=== PATIENT | female | born 1985 | race Caucasian/White ===

== ENCOUNTER 2018-12-10 14:45 | Emergency (ER) | payer BC, OTHER ==
[2018-12-10 15:02] VITALS: BP 130/87
[2018-12-10] MEDS ORDERED: DUONEB 0.5-3 MG/3 ml Neb IH ONE ×2 (15:05→15:23)
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
[2018-12-10 15:37] VITALS: PULSE 79
[2018-12-10 15:50] VITALS: O2SAT 98
== END 2018-12-10 16:02 | disposition home or self-care (01) ==
LOC: ED 14:45
DX: S50.01XA Contusion of right elbow, initial encounter (principal); V53.6XXA Passenger in pick-up truck or van injured in collision with car, pick-up truck or van in traffic accident, initial encounter; J44.1 Chronic obstructive pulmonary disease with (acute) exacerbation
CPT/HCPCS: 73080; 94150; 94640; 99283; A9270-GY

== ENCOUNTER 2020-03-21 15:12 | Emergency (ER) | payer OTHER ==
[2020-03-21 15:52] LABS: Hematocrit 37.9 % (35-47); Hemoglobin 12.2 gm/dl (12.0-16.0); Mean Cell Volume 80.5 fl (78-100); Mean Corpuscular Hemoglobin 25.9 pg (26-32); Mean Corpuscular Hgb Concent. 32.2 g/dl (32-36); Mean Platelet Volume 11.4 fl (7.5-11.0); Platelet Count 277 K/mm3 (150-450); Red Blood Count 4.71 M/mm3 (4.1-5.4); Red Cell Distribution Width 14.2 % (11.5-14.0); White Blood Count 9.5 K/mm3 (4.0-10.5)
[2020-03-21 16:03] LABS: ALBUMIN 4.3 g/dL (3.5-5.0); ALKALINE PHOSPHATASE 53 U/L (38-126); ANION GAP 11.8 MEQ/L (5-15); BLOOD UREA NITROGEN 10 mg/dL (7-17); CHLORIDE 106 mmol/L (98-107); Calcium 9.5 mg/dL (8.4-10.2); Carbon Dioxide 23 mmol/L (22-30); Creatinine 1 0.71 mg/dL (0.52-1.04); EST GLOMERULAR FILTRATION RATE > 60.0 ML/MIN; Glucose 97 mg/dL (74-106); SGOT/AST 24 U/L (14-36); SGPT/ALT 19 U/L (0-35); SODIUM 136 mmol/L (137-145); Total Protein 7.5 g/dL (6.3-8.2)
[2020-03-21 16:50] LABS: Appearance SLIGHTLY CLOUDY (CLEAR); Bacteria RARE /HPF (NEGATIVE); Bilirubin NEGATIVE (NEGATIVE); Blood LARGE Ery/ul (0-5); Epithelial Cells RARE /HPF (FEW); Glucose NEGATIVE (NEGATIVE); Ketones NEGATIVE (NEGATIVE); Leukocyte Esterase NEGATIVE (NEGATIVE); Mucus SLIGHT /HPF (NEGATIVE); Nitrite NEGATIVE (NEGATIVE); Protein,Urine Dip 30 (Negative); Specific Gravity 1.028 (1.005-1.025); Urobilinogen NEGATIVE mg/dL (0-1); WBC 0-2 /HPF (0-5)
--- NOTE | 2020-03-21 17:43 | ERPHSYRPT ---
- History of Present Illness Time Seen by Provider: 03/21/20 15:30 Patient Subjective Stated Complaint: Pt has a hx of migraines and approx a month ago pt was having sex with her and when she had an orgasm that she instantly got a migraine, pt states that this has happened everytime since Triage Nursing Assessment: Pt brought to the ER by herself, vitals wnl, rates head pain as 7/10, no difficulties with strength, pulses normal, doesn't appear to be in any distress Physician History: 34-year-old female with the onset of postcoital headaches for the last few weeks. Colitis she does develop severe migraine type headaches which last for days. It with photophobia nausea vomiting etc. Timing/Duration: worse Quality: throbbing Head Pain Location: global Severity of Pain-Max: severe Severity of Pain-Current: none Recent Head Trauma: frequent headaches Associated Symptoms: nausea/vomiting Previous symptoms: same symptoms as today Allergies/Adverse Reactions: cephalexin monohydrate [From Keflex] Allergy (Intermediate, Verified 12/10/18 14:57) Rash eletriptan [From Relpax] Allergy (Verified 03/21/20 15:29) sumatriptan [From Imitrex] Allergy (Verified 03/21/20 15:29) Home Medications: Albuterol 8 gm Mdi Hfa [Ventolin Hfa MDI] 1 - 2 puff IH Q4H PRN PRN 08/25/14 [History] Sertraline HCl 50 mg [Zoloft 50 mg Tablet] 100 mg PO DAILY 08/25/14 [History] Umeclidinium Brm/Vilanterol Tr [Anoro Ellipta 62.5-25 Mcg INH] 1 each IH UD 03/21/20 [History] Hx Tetanus, Diphtheria Vaccination/Date Given: Yes Hx Influenza Vaccination/Date Given: No Hx Pneumococcal Vaccination/Date Given: No Travel Risk - International Travel Have you traveled outside of the country in past 3 weeks: No - Coronavirus Screening Are you exhibiting any of the following symptoms?: No Close contact with a COVID-19 positive Pt in past 14-21 Days: No - Review of Systems Constitutional: No Fever, No Chills Eyes: No Symptoms Ears, Nose, & Throat: No Symptoms Respiratory: No Cough, No Dyspnea Cardiac: No Chest Pain, No Edema, No Syncope Abdominal/Gastrointestinal: No Abdominal Pain, No Nausea, No Vomiting, No Diarrhea Genitourinary Symptoms: No Dysuria Musculoskeletal: No Back Pain, No Neck Pain Skin: No Rash Neurological: Headache, No Dizziness, No Focal Weakness, No Sensory Changes Psychological: No Symptoms Endocrine: No Symptoms All Other Systems: Reviewed and Negative - Past Medical History Pertinent Past Medical History: Yes Neurological History: Migraines Respiratory History: Asthma Psycho-Social History: Anxiety, Depression - Past Surgical History Past Surgical History: Yes Gastrointestinal: Cholecystectomy Female Surgical History: Dilation & Curettage, Section, Tubal Ligation Other Surgical History: perirectal fistula - Social History Smoking Status: Current every day smoker How long have you smoked: YRS Exposure to second hand smoke: Yes Drug Use: none Patient Lives Alone: No - Female History Hx Now: No - Nursing Vital Signs Nursing Vital Signs: Initial Vital Signs Temperature 97.9 F 03/21/20 15:18 Pulse Rate 86 03/21/20 15:18 Blood Pressure 115/70 03/21/20 15:18 O2 Sat by Pulse Oximetry 99 03/21/20 15:18 Pain Scale Pain Intensity 7 - Physical Exam General Appearance: no apparent distress Eye Exam: PERRL/EOMI Ears, Nose, Throat Exam: normal ENT inspection, moist mucous membranes Neck Exam: normal inspection, supple, full range of motion, No meningismus Respiratory Exam: normal breath sounds, lungs clear Cardiovascular Exam: regular rate/rhythm, normal heart sounds Gastrointestinal/Abdominal Exam: soft, No tenderness, No distention Back Exam: normal inspection, normal range of motion Mental Status Exam: alert, oriented x 3, cooperative dessert cup machine feeder Exam: normal speech, PERRL, No facial droop Coordination/Gait Exam: normal cerebellar function Motor/Sensory Exam: no motor deficit, no sensory deficit Skin Exam: normal color, warm, dry, No rash SpO2: 99 - Course Nursing assessment & vital signs reviewed: Yes - CT Exams Head CT Interpretation: Negative, Other ( did not show any aneurysms or masses) Ordered Tests: Active Orders 24 hr Category Date Time Status CTA HEAD W AND/OR WO CONTRAST [CT] Stat Exams 03/21/20 15:29 Taken CBC Stat Lab 03/21/20 15:45 Completed CMP Stat Lab 03/21/20 15:45 Completed CULTURE,URINE Stat Lab 03/21/20 15:44 Received HCG, Quantitative (Inhouse) Stat Lab 03/21/20 15:45 Completed UA W/RFX UR CULTURE Stat Lab 03/21/20 15:44 Completed Lab/Rad Data: Laboratory Result Diagrams 03/21/20 15:45 03/21/20 15:45 Laboratory Results 03/21/20 03/21/20 03/21/20 Range/Units 15:45 15:45 15:45 WBC 9.5 (4.0-10.5) K/mm3 RBC 4.71 (4.1-5.4) M/mm3 Hgb 12.2 (12.0-16.0) gm/dl Hct 37.9 (35-47) % MCV 80.5 (78-100) fl MCH 25.9 L (26-32) pg MCHC 32.2 (32-36) g/dl RDW 14.2 H (11.5-14.0) % Plt Count 277 (150-450) K/mm3 MPV 11.4 H (7.5-11.0) fl Sodium 136 L (137-145) mmol/L Potassium 4.0 (3.5-5.1) mmol/L Chloride 106 (98-107) mmol/L Carbon Dioxide 23 (22-30) mmol/L Anion Gap 11.8 (5-15) MEQ/L BUN 10 (7-17) mg/dL Creatinine 0.71 (0.52-1.04) mg/dL Estimated GFR > 60.0 ML/MIN Glucose 97 (74-106) mg/dL Calcium 9.5 (8.4-10.2) mg/dL Total Bilirubin 0.40 (0.2-1.3) mg/dL AST 24 (14-36) U/L ALT 19 (0-35) U/L Alkaline Phosphatase 53 (38-126) U/L Serum Total Protein 7.5 (6.3-8.2) g/dL Albumin 4.3 (3.5-5.0) g/dL Beta HCG, Quant < 2.39 mIU/ml Urine Color (YELLOW) Urine Appearance (CLEAR) Urine pH (5-6) Ur Specific [place] (1.005-1.025) Urine Protein (Negative) Urine Ketones (NEGATIVE) Urine Blood (0-5) [place]/ul Urine Nitrite (NEGATIVE) Urine Bilirubin (NEGATIVE) Urine Urobilinogen (0-1) mg/dL Ur Leukocyte Esterase (NEGATIVE) Urine WBC (Auto) (0-5) /HPF Urine RBC (Auto) (0-2) /HPF U Epithel Cells (Auto) (FEW) /HPF Urine Bacteria (Auto) (NEGATIVE) /HPF Urine Mucus (Auto) (NEGATIVE) /HPF Urine Culture Reflexed (NO) Urine Glucose (NEGATIVE) mg/dL 03/21/20 Range/Units 15:44 WBC (4.0-10.5) K/mm3 RBC (4.1-5.4) M/mm3 Hgb (12.0-16.0) gm/dl Hct (35-47) % MCV (78-100) fl MCH (26-32) pg MCHC (32-36) g/dl RDW (11.5-14.0) % Plt Count (150-450) K/mm3 MPV (7.5-11.0) fl Sodium (137-145) mmol/L Potassium (3.5-5.1) mmol/L Chloride (98-107) mmol/L Carbon Dioxide (22-30) mmol/L Anion Gap (5-15) MEQ/L BUN (7-17) mg/dL Creatinine (0.52-1.04) mg/dL Estimated GFR ML/MIN Glucose (74-106) mg/dL Calcium (8.4-10.2) mg/dL Total Bilirubin (0.2-1.3) mg/dL AST (14-36) U/L ALT (0-35) U/L Alkaline Phosphatase (38-126) U/L Serum Total Protein (6.3-8.2) g/dL Albumin (3.5-5.0) g/dL Beta HCG, Quant mIU/ml Urine Color YELLOW (YELLOW) Urine Appearance SLIGHTLY CLOUDY (CLEAR) Urine pH 5.0 (5-6) Ur Specific [place] 1.028 (1.005-1.025) Urine Protein 30 (Negative) Urine Ketones NEGATIVE (NEGATIVE) Urine Blood LARGE (0-5) [place]/ul Urine Nitrite NEGATIVE (NEGATIVE) Urine Bilirubin NEGATIVE (NEGATIVE) Urine Urobilinogen NEGATIVE (0-1) mg/dL Ur Leukocyte Esterase NEGATIVE (NEGATIVE) Urine WBC (Auto) 0-2 (0-5) /HPF Urine RBC (Auto) 3-5 (0-2) /HPF U Epithel Cells (Auto) RARE (FEW) /HPF Urine Bacteria (Auto) RARE (NEGATIVE) /HPF Urine Mucus (Auto) SLIGHT (NEGATIVE) /HPF Urine Culture Reflexed YES (NO) Urine Glucose NEGATIVE (NEGATIVE) mg/dL - Progress Progress: improved Air Movement: good Blood Culture(s) Obtained: No Antibiotics given: No - Departure Clinical Impression: Headache, migraine Condition: Stable Critical Care Time: No Referrals: JONNY PACKER MD [Primary Care Provider] - Instructions: Headache, Adult (DC) Additional Instructions: Patient was advised to use Tylenol aspirin or Motrin prior to intercourse.
[2020-03-21 19:12] VITALS: BP 97/57; PULSE 87; O2SAT 97
--- NOTE | 2020-03-22 08:42 | XRAY ---
Indication: Postcoital headache. Conventional contrast enhanced CTA head performed using 100 cc Isovue 370 contrast. Two-dimensional sagittal and coronal reformatted images obtained. Additional 3-dimensional reformatted images obtained using a separate workstation. Comparison: None Distal internal carotid arteries are bilaterally symmetric without critical stenosis, obstruction, or AV malformation. Normal carotid terminus with normal branching A1 and M1 segments bilaterally. More distal anterior cerebral and middle cerebral arteries are normal in CTA appearance. Posterior circulation demonstrates normal CTA appearance to the distal vertebral, basilar, posterior cerebral, superior cerebellar, and anterior inferior cerebellar arteries bilaterally. Remaining brain is negative for abnormal enhancing intra-or extra-axial mass. Fourth ventricle is midline without hydrocephalus. Briggs-white matter differentiation preserved. Bony calvarium intact. Visualized paranasal sinuses and mastoid air cells are clear. Impression: Normal CTA head with contrast exam.
== END 2020-03-21 19:13 | disposition home or self-care (01) ==
LOC: ED 15:12
DX: G43.909 Migraine, unspecified, not intractable, without status migrainosus (principal); R11.2 Nausea with vomiting, unspecified; Z79.899 Other long term (current) drug therapy; F17.200 Nicotine dependence, unspecified, uncomplicated
CPT/HCPCS: 36000; 36415; 70496; 80053; 81001; 84702; 85027; 87086; 99284

== ENCOUNTER 2020-12-20 14:52 | Emergency (ER) | payer OTHER ==
--- NOTE | 2020-12-20 14:56 | ERPHSYRPT ---
- History of Present Illness Time Seen by Provider: 12/20/20 14:55 Source: patient Exam Limitations: no limitations Physician History: This is a right-handed white female who was mowing her yard and when she pulled the starter her elbow hit directly onto the house. She felt shooting pain proximally and distally to the right elbow. There is also been swelling present. It hurts to flex and extend the right elbow. Occurred: just prior to arrival Method of Injury: direct blow Quality: constant, aching Severity of Pain-Max: moderate Severity of Pain-Current: moderate Extremities Pain Location: elbow: right Modifying Factors: Improves With: movement Associated Symptoms: none Allergies/Adverse Reactions: cephalexin monohydrate [From Keflex] Allergy (Intermediate, Verified 12/20/20 15:10) Rash eletriptan [From Relpax] Allergy (Verified 12/20/20 15:10) sumatriptan [From Imitrex] Allergy (Verified 12/20/20 15:10) Home Medications: Albuterol 8 gm Mdi Hfa [Ventolin Hfa MDI] 1 - 2 puff IH Q4H PRN PRN 08/25/14 [History] Sertraline HCl 50 mg [Zoloft 50 mg Tablet] 100 mg PO DAILY 08/25/14 [History] Umeclidinium Brm/Vilanterol Tr [Anoro Ellipta 62.5-25 Mcg INH] 1 each IH UD 03/21/20 [History] Hx Tetanus, Diphtheria Vaccination/Date Given: Yes Hx Influenza Vaccination/Date Given: No Hx Pneumococcal Vaccination/Date Given: No Travel Risk - International Travel Have you traveled outside of the country in past 3 weeks: No - Coronavirus Screening Are you exhibiting any of the following symptoms?: No Close contact with a COVID-19 positive Pt in past 14-21 Days: No - Review of Systems Constitutional: No Symptoms Eyes: No Symptoms Ears, Nose, & Throat: No Symptoms Respiratory: No Symptoms Cardiac: No Symptoms Abdominal/Gastrointestinal: No Symptoms Genitourinary Symptoms: No Symptoms Musculoskeletal: Injury Skin: No Symptoms Neurological: No Symptoms Psychological: No Symptoms Endocrine: No Symptoms Hematologic/Lymphatic: No Symptoms Immunological/Allergic: No Symptoms All Other Systems: Reviewed and Negative - Past Medical History Pertinent Past Medical History: Yes Neurological History: Migraines Respiratory History: Asthma Psycho-Social History: Anxiety, Depression - Past Surgical History Past Surgical History: Yes Gastrointestinal: Cholecystectomy Female Surgical History: Dilation & Curettage, Section, Tubal Ligation Other Surgical History: perirectal fistula - Social History Smoking Status: Current every day smoker How long have you smoked: YRS Exposure to second hand smoke: Yes Drug Use: none Patient Lives Alone: No - Nursing Vital Signs Nursing Vital Signs: Initial Vital Signs Temperature 97.6 F 12/20/20 15:12 Pulse Rate 98 H 12/20/20 15:12 Respiratory Rate 21 12/20/20 15:12 Blood Pressure 114/68 12/20/20 15:12 O2 Sat by Pulse Oximetry 99 12/20/20 15:12 Pain Scale Pain Intensity 8 - Physical Exam General Appearance: no apparent distress, alert, anxiety Eyes, Ears, Nose, Throat Exam: normal ENT inspection, moist mucous membranes Neck Exam: normal inspection, non-tender, supple, full range of motion Cardiovascular/Respiratory Exam: chest non-tender, no respiratory distress Abdominal Exam: non-tender Back Exam: normal inspection, normal range of motion, No CVA tenderness, No vertebral tenderness Shoulder Exam: normal inspection, non-tender, no evidence of injury, normal ROM Elbow/Forearm Exam: bone tenderness, soft tissue tenderness Wrist Exam: normal inspection, non-tender, no evidence of injury, normal ROM Hand Exam: normal inspection, non-tender, no evidence of injury, normal ROM Neuro/Tendon Exam: normal sensation, normal motor functions, normal tendon functions, responds to pain Mental Status Exam: alert, oriented x 3, cooperative Skin Exam: normal color, warm, dry SpO2 Interpretation: normal O2 Delivery: Room Air - Course Nursing assessment & vital signs reviewed: Yes Ordered Tests: Active Orders 24 hr Category Date Time Status ELBOW (MINIMUM 3 VIEWS) Stat Exams 12/20/20 16:03 Taken - Progress Progress: pain not gone completely, re-examined Progress Note: 12/20/20 16:48 X-ray shows no acute or dislocation Counseled pt/family regarding: diagnosis, need for follow-up, rad results - Departure Departure Disposition: Home Clinical Impression: Elbow contusion Condition: Stable Critical Care Time: No Referrals: JONNY PACKER MD [Primary Care Provider] - Additional Instructions: Ice pack to area 3 times a day. Take your medication as prescribed. Add ibuprofen 600 mg orally 3 times a day for pain control. Wear sling for pain control. Follow-up with [facility] orthopedic clinic for persistent pain in the right elbow. Prescriptions: Hydrocodone/APAP 5/325 [Wat[place] 5/325 mg] 1 each PO Q8H PRN PRN #6 tablet MDD 3 PRN Reason: Pain
--- NOTE | 2020-12-20 16:46 | XRAY ---
Indication: Unable to straighten elbow. Comparison: December 10, 2018. 3 view right elbow obtained. No bony, articular, or soft tissue abnormalities.
[2020-12-20 18:16] VITALS: BP 120/76; PULSE 88; O2SAT 98
== END 2020-12-20 17:18 | disposition home or self-care (01) ==
LOC: ED 14:52
DX: S50.01XA Contusion of right elbow, initial encounter (principal); W22.09XA Striking against other stationary object, initial encounter; Y93.89 Activity, other specified; Y92.89 Other specified places as the place of occurrence of the external cause
CPT/HCPCS: 73080; 99283

== ENCOUNTER 2021-09-05 11:33 | Emergency (ER) | payer OTHER ==
[2021-09-05] MEDS ORDERED: Zofran 4 MG/2 ML VIAL IV ONE (11:49)
[2021-09-05] MEDS ORDERED: Sodium Chloride 0.9% 1000 ML 1,000 ML IV STA (11:49)
[2021-09-05] MEDS ORDERED: Hydromorphone 1 mg/ml Injection IV ONE (11:49)
--- NOTE | 2021-09-05 11:49 | ERPHSYRPT ---
- History of Present Illness Time Seen by Provider: 09/05/21 11:49 Historian: patient Exam Limitations: no limitations Physician History: This is an overweight white female patient who presents from the outpatient clinic because of significant suprapubic and pelvic pain. On 08/13/2021, the patient underwent a uterine ablation at an outside facility. Postoperatively, i nitially, she had spotty pink vaginal discharge which is expected. However in the last few days, the patient has noticed a change in the vaginal discharge and the amount of pain she is having. Patient states that the vaginal discharge is now a yellowish color and her pain is significantly increased. Patient was seen in outpatient clinic and referred to our emergency department by nurse margo Reardon. He did perform a urinalysis which showed a definite urinary tract infection. Patient was referred to the emergency department because of significant abdominal pain and to obtain further work-up including CAT scan of the abdomen pelvis if indicated. Patient's link assembler is Dr. Ibarra. She has an appointment to see him tomorrow, 09/06/2021. Patient does not have antibiotics and she does not have any pain medication. Timing/Duration: day(s) (3), worse Quality: sharpness Abdominal Pain Onset Location: suprapubic, flank (Bilateral) Pain Radiation: no radiation Severity of Pain-Max: moderate Severity of Pain-Current: moderate Modifying Factors: Improves With: urinating Associated Symptoms: denies symptoms Previous symptoms: recently seen Allergies/Adverse Reactions: cephalexin monohydrate [From Keflex] Allergy (Intermediate, Verified 09/05/21 11:44) Rash eletriptan [From Relpax] Allergy (Verified 09/05/21 11:44) sumatriptan [From Imitrex] Allergy (Verified 09/05/21 11:44) Home Medications: Albuterol 8 gm Mdi Hfa [Ventolin Hfa MDI] 1 - 2 puff IH Q4H PRN PRN 08/25/14 [History] Umeclidinium Brm/Vilanterol Tr [Anoro Ellipta 62.5-25 Mcg INH] 1 each IH UD 03/21/20 [History] Paroxetine HCl 20 mg [Paxil 20 MG] 1 tab PO DAILY 09/05/21 [History] Hx Tetanus, Diphtheria Vaccination/Date Given: Yes Hx Influenza Vaccination/Date Given: No Hx Pneumococcal Vaccination/Date Given: No Travel Risk - International Travel Have you traveled outside of the country in past 3 weeks: No - Coronavirus Screening Are you exhibiting any of the following symptoms?: No Close contact with a COVID-19 positive Pt in past 14-21 Days: No - Vaccine Status Have you recieved a Covid-19 vaccination: Yes Product Development Coordinator: Moderna - Vaccination Dates Date of 2cond Vaccination (if applicable): 06/29/2020 - Review of Systems Constitutional: No Symptoms Eyes: No Symptoms Ears, Nose, & Throat: No Symptoms Respiratory: No Symptoms Cardiac: No Symptoms Abdominal/Gastrointestinal: Abdominal Pain Genitourinary Symptoms: Dysuria, Flank Pain (Bilateral), Vaginal Discharge (Yellowish) Musculoskeletal: No Symptoms Skin: No Symptoms Neurological: No Symptoms Psychological: No Symptoms Endocrine: No Symptoms Hematologic/Lymphatic: No Symptoms Immunological/Allergic: No Symptoms All Other Systems: Reviewed and Negative - Past Medical History Pertinent Past Medical History: Yes Neurological History: Migraines Respiratory History: Asthma Psycho-Social History: Anxiety, Depression - Past Surgical History Past Surgical History: Yes Gastrointestinal: Cholecystectomy Female Surgical History: Dilation & Curettage, Section, Tubal Ligation Other Surgical History: perirectal fistula - Social History Smoking Status: Current every day smoker How long have you smoked: YRS Exposure to second hand smoke: Yes Drug Use: none Patient Lives Alone: No - Nursing Vital Signs Nursing Vital Signs: Initial Vital Signs Temperature 98.2 F 09/05/21 11:46 Pulse Rate 83 09/05/21 11:46 Respiratory Rate 18 09/05/21 11:46 Blood Pressure 129/85 09/05/21 11:46 O2 Sat by Pulse Oximetry 100 09/05/21 11:46 Pain Scale Pain Intensity 10 - Physical Exam General Appearance: no apparent distress, alert, anxiety Eye Exam: PERRL/EOMI, eyes nml inspection Ears, Nose, Throat Exam: normal ENT inspection, moist mucous membranes Neck Exam: normal inspection, non-tender, supple, full range of motion Respiratory Exam: normal breath sounds, lungs clear, airway intact, No chest tenderness, No respiratory distress Cardiovascular Exam: regular rate/rhythm, normal heart sounds, normal peripheral pulses Gastrointestinal/Abdomen Exam: soft, normal bowel sounds, tenderness (Supra pubic to palpation), guarding (Suprapubic to palpation) Pelvic Exam: not done Rectal Exam: not done Back Exam: normal inspection, normal range of motion, No CVA tenderness, No reynold tebral tenderness Extremity Exam: normal inspection, normal range of motion, pelvis stable Neurologic Exam: alert, oriented x 3, cooperative, hotel guest service agent II-XII nml as tested, normal mood/affect, nml cerebellar function, nml station & gait, sensation nml Skin Exam: normal color, warm, dry Lymphatic Exam: No adenopathy SpO2 Interpretation: normal O2 Delivery: Room Air - Course Nursing assessment & vital signs reviewed: Yes Ordered Tests: Active Orders 24 hr Category Date Time Status IV Insertion STAT Care 09/05/21 11:49 Active ABDOMEN AND PELVIS W/0 CONTRAS [CT] Stat Exams 09/05/21 11:49 Completed AMYLASE Stat Lab 09/05/21 11:45 Completed BLOOD CULTURE Stat Lab 09/05/21 12:09 Received CBC W DIFF Stat Lab 09/05/21 11:49 Completed CMP Stat Lab 09/05/21 11:45 Completed CULTURE,URINE Stat Lab 09/05/21 11:58 Received HCG QUALITATIVE,SERUM Stat Lab 09/05/21 Completed LIPASE Stat Lab 09/05/21 11:45 Completed Lactic Acid Stat Lab 09/05/21 12:10 Completed UA W/RFX CULTURE Stat Lab 09/05/21 11:58 Completed Medication Summary Discontinued Medications Generic Name Dose Route Start Last Admin Trade Name Freq PRN Reason Stop Dose Admin Hydromorphone HCl 1 mg 09/05/21 11:49 09/05/21 11:55 Hydromorphone 1 Mg/1ml Inj 1 Mg/Ml Syringe IV 09/05/21 11:50 1 mg STAT ONE Administration Hydromorphone HCl Confirm 09/05/21 11:52 Hydromorphone 1 Mg/1ml Inj 1 Mg/Ml Syringe Administered 09/05/21 11:53 Dose 1 mg .ROUTE .STK-MED ONE Sodium Chloride 1,000 mls @ 999 mls/hr 09/05/21 11:49 09/05/21 13:08 Sodium Chloride 0.9% 1000 Ml IV 09/05/21 12:49 Infused .Q1H1M STA Infusion Sodium Chloride Confirm 09/05/21 11:52 Sodium Chloride 0.9% 1000 Ml Administered 09/05/21 11:53 Dose 1,000 mls @ ud .ROUTE .STK-MED ONE Ondansetron HCl 4 mg 09/05/21 11:49 09/05/21 11:55 Ondansetron Hcl 4 Mg/2 Ml Vial IV 09/05/21 11:50 4 mg STAT ONE Administration Ondansetron HCl Confirm 09/05/21 11:52 Ondansetron Hcl 4 Mg/2 Ml Vial Administered 09/05/21 11:53 Dose 4 mg .ROUTE .STK-MED ONE Lab/Rad Data: Laboratory Result Diagrams 09/05/21 11:49 09/05/21 11:45 Laboratory Results 09/05/21 09/05/21 09/05/21 Range/Units Unknown 12:10 11:58 WBC (4.0-10.5) x10^3/uL RBC (4.1-5.4) x10^6/uL Hgb (12.0-16.0) g/dL Hct (35-47) % MCV (78-100) fL MCH (26-32) pg MCHC (32-36) g/dL RDW (11.5-14.0) % Plt Count (150-450) x10^3/uL MPV (7.5-11.0) fL Gran % (36.0-66.0) % Immature Gran % (Auto) (0.00-0.4) % Nucleat RBC Rel Count (0.00-0.1) % Eos # (Auto) (0-0.5) x10^3/uL Immature Gran # (Auto) (0.00-0.03) x10^3u/L Absolute Lymphs (auto) (1.0-4.6) x10^3/uL Absolute Monos (auto) (0.0-1.3) x10^3/uL Absolute Nucleated RBC (0.00-0.01) x10^3u/L Lymphocytes % (24.0-44.0) % Monocytes % (0.0-12.0) % Eosinophils % (0.00-5.0) % Basophils % (0.0-0.4) % Absolute Granulocytes (1.4-6.9) x10^3/uL Basophils # (0-0.4) x10^3/uL Sodium (137-145) mmol/L Potassium (3.5-5.1) mmol/L Chloride (98-107) mmol/L Carbon Dioxide (22-30) mmol/L Anion Gap (5-15) MEQ/L BUN (7-17) mg/dL Creatinine (0.52-1.04) mg/dL Estimated GFR ML/MIN Glucose (74-106) mg/dL Lactic Acid 1.1 (0.4-2.0) Calcium (8.4-10.2) mg/dL Total Bilirubin (0.2-1.3) mg/dL AST (14-36) U/L ALT (0-35) U/L Alkaline Phosphatase (38-126) U/L Serum Total Protein (6.3-8.2) g/dL Albumin (3.5-5.0) g/dL Amylase (30-110) U/L Lipase (23-300) U/L Serum , Qual NEGATIVE (Negative) Urinalys Dipstick Clnc MAIN LAB Urine Color YELLOW (YELLOW) Urine Appearance SLIGHTLY CLOUDY (CLEAR) Urine pH 5.5 (5-6) Ur Specific [place] 1.020 (1.005-1.025) POC Urine Protein Conf 30 (Negative) Urine Ketones NEGATIVE (NEGATIVE) Urine Nitrite POSITIVE (NEGATIVE) Urine Bilirubin NEGATIVE (NEGATIVE) Urine Urobilinogen 0.2 (0-1) mg/dL Urine Leukocytes SMALL (NEGATIVE) Urine WBC (Auto) 51-100 (0-5) /HPF Urine RBC (Auto) 11-15 (0-2) /HPF U Epithel Cells (Auto) FEW (FEW) /HPF Urine Bacteria (Auto) FEW (NEGATIVE) /HPF Urine RBC SMALL (0-5) [place]/ul Ur Culture Indicated? YES Urine Glucose NEGATIVE (NEGATIVE) mg/dL 09/05/21 09/05/21 Range/Units 11:49 11:45 WBC 10.4 (4.0-10.5) x10^3/uL RBC 4.51 (4.1-5.4) x10^6/uL Hgb 11.9 L (12.0-16.0) g/dL Hct 37.5 (35-47) % MCV 83.1 (78-100) fL MCH 26.4 (26-32) pg MCHC 31.7 L (32-36) g/dL RDW 13.4 (11.5-14.0) % Plt Count 277 (150-450) x10^3/uL MPV 11.4 H (7.5-11.0) fL Gran % 69.6 H (36.0-66.0) % Immature Gran % (Auto) 0.4 (0.00-0.4) % Nucleat RBC Rel Count 0.0 (0.00-0.1) % Eos # (Auto) 0.56 H (0-0.5) x10^3/uL Immature Gran # (Auto) 0.04 H (0.00-0.03) x10^3u/L Absolute Lymphs (auto) 1.99 (1.0-4.6) x10^3/uL Absolute Monos (auto) 0.48 (0.0-1.3) x10^3/uL Absolute Nucleated RBC 0.00 (0.00-0.01) x10^3u/L Lymphocytes % 19.1 L (24.0-44.0) % Monocytes % 4.6 (0.0-12.0) % Eosinophils % 5.4 H (0.00-5.0) % Basophils % 0.9 (0.0-0.4) % Absolute Granulocytes 7.25 H (1.4-6.9) x10^3/uL Basophils # 0.09 (0-0.4) x10^3/uL Sodium 139 (137-145) mmol/L Potassium 4.1 (3.5-5.1) mmol/L Chloride 106 (98-107) mmol/L Carbon Dioxide 25 (22-30) mmol/L Anion Gap 12.9 (5-15) MEQ/L BUN 7 (7-17) mg/dL Creatinine 0.86 (0.52-1.04) mg/dL Estimated GFR > 60.0 ML/MIN Glucose 78 (74-106) mg/dL Lactic Acid (0.4-2.0) Calcium 9.3 (8.4-10.2) mg/dL Total Bilirubin 0.40 (0.2-1.3) mg/dL AST 21 (14-36) U/L ALT 17 (0-35) U/L Alkaline Phosphatase 63 (38-126) U/L Serum Total Protein 7.6 (6.3-8.2) g/dL Albumin 4.3 (3.5-5.0) g/dL Amylase 60 (30-110) U/L Lipase 33 (23-300) U/L Serum , Qual (Negative) Urinalys Dipstick Clnc Urine Color (YELLOW) Urine Appearance (CLEAR) Urine pH (5-6) Ur Specific [place] (1.005-1.025) POC Urine Protein Conf (Negative) Urine Ketones (NEGATIVE) Urine Nitrite (NEGATIVE) Urine Bilirubin (NEGATIVE) Urine Urobilinogen (0-1) mg/dL Urine Leukocytes (NEGATIVE) Urine WBC (Auto) (0-5) /HPF Urine RBC (Auto) (0-2) /HPF U Epithel Cells (Auto) (FEW) /HPF Urine Bacteria (Auto) (NEGATIVE) /HPF Urine RBC (0-5) [place]/ul Ur Culture Indicated? Urine Glucose (NEGATIVE) mg/dL - Progress Progress: improved, pain not gone completely, re-examined Progress Note: 09/05/21 13:46 CAT scan of the abdomen pelvis without contrast is negative for any acute intra- abdominal or intrapelvic process Counseled pt/family regarding: lab results, diagnosis, need for follow-up, rad results - Departure Departure Disposition: Home Clinical Impression: UTI (urinary tract infection) Condition: Stable Critical Care Time: No Referrals: JONNY PACKER MD [Primary Care Provider] - Follow up/PCP as directed Additional Instructions: Drink plenty of fluids. Take your medication as prescribed. Follow-up with your link assembler tomorrow at your scheduled appointment time. Prescriptions: Hydrocodone/APAP 5/325 [[place] 5/325 mg] 1 each PO Q8H PRN PRN #6 tablet MDD 3 PRN Reason: Pain Levofloxacin [Levaquin 500 MG Tablet] 500 mg PO DAILY #7 tablet
[2021-09-05] MEDS ORDERED: Zofran 4 MG/2 ML VIAL ONE (11:52)
[2021-09-05] MEDS ORDERED: Sodium Chloride 0.9% 1000 ML 1,000 ML ONE (11:52)
[2021-09-05] MEDS ORDERED: Hydromorphone 1 mg/ml Injection ONE (11:52)
[2021-09-05 12:15] LABS: Absolute Neutrophil Ct (ANC) 7.25 x10^3/uL (1.4-6.9); Basophil (Absolute #) 0.09 x10^3/uL (0-0.4); Eosinophil % 5.4 % (0.00-5.0); Eosinophil (Absolute #) 0.56 x10^3/uL (0-0.5); Hematocrit 37.5 % (35-47); Hemoglobin 11.9 g/dL (12.0-16.0); Lymphocyte (Absolute #) 1.99 x10^3/uL (1.0-4.6); Lymphocytes % 19.1 % (24.0-44.0); Mean Cell Volume 83.1 fL (78-100); Mean Corpuscular Hemoglobin 26.4 pg (26-32); Mean Corpuscular Hgb Concent. 31.7 g/dL (32-36); Mean Platelet Volume 11.4 fL (7.5-11.0); Monocyte (Absolute #) 0.48 x10^3/uL (0.0-1.3); Monocytes % 4.6 % (0.0-12.0); Neutrophil % 69.6 % (36.0-66.0); Platelet Count 277 x10^3/uL (150-450); Red Blood Count 4.51 x10^6/uL (4.1-5.4); Red Cell Distribution Width 13.4 % (11.5-14.0); White Blood Count 10.4 x10^3/uL (4.0-10.5)
[2021-09-05 12:31] LABS: ALBUMIN 4.3 g/dL (3.5-5.0); ALKALINE PHOSPHATASE 63 U/L (38-126); AMYLASE 60 U/L (30-110); ANION GAP 12.9 MEQ/L (5-15); BLOOD UREA NITROGEN 7 mg/dL (7-17); CHLORIDE 106 mmol/L (98-107); Calcium 9.3 mg/dL (8.4-10.2); Carbon Dioxide 25 mmol/L (22-30); Creatinine 1 0.86 mg/dL (0.52-1.04); EST GLOMERULAR FILTRATION RATE > 60.0 ML/MIN; Glucose 78 mg/dL (74-106); LIPASE 33 U/L (23-300); Potassium 4.1 mmol/L (3.5-5.1); SGOT/AST 21 U/L (14-36); SGPT/ALT 17 U/L (0-35); SODIUM 139 mmol/L (137-145); Total Protein 7.6 g/dL (6.3-8.2)
--- NOTE | 2021-09-05 13:01 | XRAY ---
Indication: Abdomen pain following uterine ablation August 13, 2021. Multiple contiguous axial images obtained through the abdomen and pelvis without contrast. Comparison: None Lung bases are clear. Heart not enlarged. Noncontrasted stomach and bowel loops appear nonobstructed with normal appendix. Previous cholecystectomy. No free fluid/air. Remaining liver, pancreas, spleen, adrenal glands, kidneys, ureters, bladder, uterus, and aorta are unremarkable for noncontrast exam. Osseous structures intact. No ventral or inguinal hernias. Impression: Negative CT abdomen/pelvis without contrast exam.
[2021-09-05 13:23] LABS: Bacteria FEW /HPF (NEGATIVE); Epithelial Cells FEW /HPF (FEW); WBC 51-100 /HPF (0-5)
[2021-09-05 13:26] LABS: Appearance SLIGHTLY CLOUDY (CLEAR); Bilirubin NEGATIVE (NEGATIVE); Glucose NEGATIVE (NEGATIVE); Ketones NEGATIVE (NEGATIVE); Nitrite POSITIVE (NEGATIVE); Ph 5.5 (5-6); Protein,Urine Dip 30 (Negative); RBC SMALL Ery/ul (0-5); Urine Cultured Indicated? YES; Urobilinogen 0.2 mg/dL (0-1)
[2021-09-05 13:27] LABS: Dipstick done @ ? MAIN LAB
[2021-09-05] MEDS ORDERED: Levofloxacin 500 MG Tablet PO ONE (13:49)
[2021-09-05] MEDS ORDERED: Levofloxacin 500 MG Tablet ONE (13:53)
[2021-09-05 13:58] VITALS: BP 98/48; PULSE 71; O2SAT 99
== END 2021-09-05 14:07 | disposition home or self-care (01) ==
LOC: ED 11:33
DX: N39.0 Urinary tract infection, site not specified (principal); R10.2 Pelvic and perineal pain; Z72.0 Tobacco use; Z79.899 Other long term (current) drug therapy; Z79.891 Long term (current) use of opiate analgesic
CPT/HCPCS: 36000; 36415; 74176; 80053; 81015; 82150; 83605; 83690; 84703; 85025; 87040; 87077; 87086; 87186; 96360; 96374; 96375; 99284; J1170; J2405; A9270-GY

== ENCOUNTER 2022-01-05 11:23 | Emergency (ER) | payer OTHER ==
[2022-01-05 11:56] LABS: Appearance SLIGHTLY CLOUDY (CLEAR); Bilirubin SMALL (NEGATIVE); Dipstick done @ ? MAIN LAB; Glucose NEGATIVE (NEGATIVE); Ketones TRACE (NEGATIVE); Nitrite NEGATIVE (NEGATIVE); Ph 5.5 (5-6); Protein,Urine Dip 100 (Negative); RBC LARGE Ery/ul (0-5); Specific Gravity 1.025 (1.005-1.025); Urobilinogen 0.2 mg/dL (0-1)
[2022-01-05 11:57] LABS: Bacteria FEW /HPF (NEGATIVE); Epithelial Cells MODERATE /HPF (FEW); Mucus SLIGHT /HPF (NEGATIVE); RBC 51-100 /HPF (0-2)
[2022-01-05 12:05] LABS: Urine Cultured Indicated? YES
[2022-01-05 12:25] LABS: Absolute Neutrophil Ct (ANC) 11.62 x10^3/uL (1.4-6.9); Basophil (Absolute #) 0.04 x10^3/uL (0-0.4); Eosinophil % 0.3 % (0.00-5.0); Eosinophil (Absolute #) 0.04 x10^3/uL (0-0.5); Hematocrit 34.7 % (35-47); Hemoglobin 11.4 g/dL (12.0-16.0); Lymphocyte (Absolute #) 1.22 x10^3/uL (1.0-4.6); Lymphocytes % 8.8 % (24.0-44.0); Mean Cell Volume 82.8 fL (78-100); Mean Corpuscular Hemoglobin 27.2 pg (26-32); Mean Corpuscular Hgb Concent. 32.9 g/dL (32-36); Mean Platelet Volume 10.8 fL (7.5-11.0); Monocyte (Absolute #) 0.89 x10^3/uL (0.0-1.3); Monocytes % 6.4 % (0.0-12.0); Neutrophil % 83.8 % (36.0-66.0); Platelet Count 215 x10^3/uL (150-450); Red Blood Count 4.19 x10^6/uL (4.1-5.4); Red Cell Distribution Width 13.8 % (11.5-14.0); White Blood Count 13.9 x10^3/uL (4.0-10.5)
[2022-01-05 12:44] LABS: ALKALINE PHOSPHATASE 52 U/L (38-126); ANION GAP 11.5 MEQ/L (5-15); BLOOD UREA NITROGEN 10 mg/dL (7-17); CHLORIDE 103 mmol/L (98-107); Calcium 8.6 mg/dL (8.4-10.2); Carbon Dioxide 22 mmol/L (22-30); Creatinine 1 1.07 mg/dL (0.52-1.04); EST GLOMERULAR FILTRATION RATE > 60.0 ML/MIN; Glucose 105 mg/dL (74-106); LIPASE 16 U/L (23-300); Potassium 3.6 mmol/L (3.5-5.1); SGOT/AST 14 U/L (14-36); SGPT/ALT 14 U/L (0-35); SODIUM 133 mmol/L (137-145)
[2022-01-05] MEDS ORDERED: Merrem 1 GM in Sodium Chloride 100ML MINI-BAG PLUS 100 ML IV ONE (13:38)
[2022-01-05] MEDS ORDERED: Sodium Chloride 100ML MINI-BAG PLUS 100 ML IV ONE (13:44)
[2022-01-05] MEDS ORDERED: Merrem IV ONE (13:44)
[2022-01-05 14:01] VITALS: BP 98/62; PULSE 78; O2SAT 98
--- NOTE | 2022-01-05 14:19 | ERPHSYRPT ---
- History of Present Illness Time Seen by Provider: 01/05/22 11:55 Historian: patient Exam Limitations: no limitations Patient Subjective Stated Complaint: Left sided flank/abdominal pain Triage Nursing Assessment: Patient ambulated back to ED and transferred self to bed. Patient A+O X 3. Patient's skin pink warm and dry. Patient complains of lef t sided flank/abdominal pain 5/10. Patient states the pain started last night with her temp being 102.6. Patient complains of frequency when urinating. Patient complains of nausea, but denies vomiting or diarrhea. Physician History: 36 years old female with history of multiple UTIs in the past presented in the ER with flank pain for the last couple of days with progressive worsening, moderate intensity sharp nature with associated increased urinary frequency and some burning sensation. Patient also report having a fever of 102 yesterday and 101 earlier today and has taken ibuprofen prior to arrival and currently afebrile. Reports nausea but no vomiting. Denies any hematuria. Does have history of multiple UTIs in the past. Timing/Duration: day(s) (2), gradual onset, worse Activities at Onset: rest Quality: sharpness Abdominal Pain Onset Location: flank Pain Radiation: no radiation Severity of Pain-Max: moderate Severity of Pain-Current: moderate Modifying Factors: Improves With: nothing Associated Symptoms: nausea Previous symptoms: same symptoms as today Allergies/Adverse Reactions: cephalexin monohydrate [From Keflex] Allergy (Intermediate, Verified 01/05/22 11:30) Rash eletriptan [From Relpax] Allergy (Verified 01/05/22 11:30) sumatriptan [From Imitrex] Allergy (Verified 01/05/22 11:30) Home Medications: Albuterol 8 gm Mdi Hfa [Ventolin Hfa MDI] 1 - 2 puff IH Q4H PRN PRN 08/25/14 [History] Umeclidinium Brm/Vilanterol Tr [Anoro Ellipta 62.5-25 Mcg INH] 1 each IH UD 03/21/20 [History] Paroxetine HCl 20 mg [Paxil 20 MG] 1 tab PO DAILY 09/05/21 [History] Hx Tetanus, Diphtheria Vaccination/Date Given: Yes Hx Influenza Vaccination/Date Given: No Hx Pneumococcal Vaccination/Date Given: No Immunizations Up to Date: Yes Travel Risk - International Travel Have you traveled outside of the country in past 3 weeks: No - Coronavirus Screening Are you exhibiting any of the following symptoms?: No - Vaccine Status Have you recieved a Covid-19 vaccination: Yes Dog Or Horse Racing Official: Moderna - Vaccination Dates Date of 2cond Vaccination (if applicable): 06/29/2020 - Review of Systems Constitutional: Fever, Fatigue Eyes: No Symptoms Ears, Nose, & Throat: No Symptoms Respiratory: No Symptoms Cardiac: No Symptoms Abdominal/Gastrointestinal: Abdominal Pain, Nausea Genitourinary Symptoms: Dysuria, Frequency Musculoskeletal: Back Pain Skin: No Symptoms Neurological: No Symptoms Psychological: No Symptoms Endocrine: No Symptoms Hematologic/Lymphatic: No Symptoms Immunological/Allergic: No Symptoms - Past Medical History Pertinent Past Medical History: Yes Neurological History: Migraines Respiratory History: Asthma GI Medical History: Gallbladder Disease Psycho-Social History: Anxiety, Depression Female Reproductive Disorders: Other Other Medical History: perirectal abcesses - Past Surgical History Past Surgical History: Yes Gastrointestinal: Cholecystectomy Female Surgical History: Dilation & Curettage, Section, Tubal Ligation Other Surgical History: perirectal fistula - Social History Smoking Status: Current every day smoker How long have you smoked: YRS Exposure to second hand smoke: Yes Drug Use: none Patient Lives Alone: No - Female History Hx Last Menstrual Period: two weeks ago Hx Now: No - Nursing Vital Signs Nursing Vital Signs: Initial Vital Signs Temperature 98.9 F 01/05/22 11:33 Pulse Rate 115 H 01/05/22 11:33 Respiratory Rate 18 01/05/22 11:33 Blood Pressure 100/63 01/05/22 11:33 O2 Sat by Pulse Oximetry 98 01/05/22 11:33 Pain Scale Pain Intensity 3 - Physical Exam General Appearance: no apparent distress, alert Eye Exam: PERRL/EOMI Ears, Nose, Throat Exam: normal ENT inspection Neck Exam: normal inspection, supple, full range of motion Respiratory Exam: normal breath sounds, lungs clear Cardiovascular Exam: regular rate/rhythm, normal heart sounds Gastrointestinal/Abdomen Exam: soft, normal bowel sounds, tenderness (Left flank with positive CVA tenderness) Back Exam: normal inspection, normal range of motion, CVA tenderness Extremity Exam: normal inspection, normal range of motion Neurologic Exam: alert, oriented x 3, cooperative, knife finisher II-XII nml as tested Skin Exam: normal color SpO2 Interpretation: normal SpO2: 98 O2 Delivery: Room Air Ordered Tests: Active Orders 24 hr Category Date Time Status ABDOMEN AND PELVIS W/0 CONTRAS [CT] Stat Exams 01/05/22 11:58 Taken CBC W DIFF Stat Lab 01/05/22 12:27 Completed CMP Stat Lab 01/05/22 12:27 Completed CULTURE,URINE Stat Lab 01/05/22 11:33 Received HCG,QUALITATIVE URINE Stat Lab 01/05/22 11:33 Completed LIPASE Stat Lab 01/05/22 12:27 Completed UA W/RFX CULTURE Stat Lab 01/05/22 11:33 Completed Medication Summary Discontinued Medications Generic Name Dose Route Start Last Admin Trade Name Freq PRN Reason Stop Dose Admin Meropenem 1 gm/ Sodium 100 mls @ 200 mls/hr 01/05/22 13:38 01/05/22 13:48 Chloride IV 01/05/22 14:07 200 mls/hr STAT ONE Administration Sodium Chloride Confirm 01/05/22 13:44 Sodium Chloride 100ml Mini-Bag Plus Administered 01/05/22 13:45 Dose 100 mls @ ud IV .STK-MED ONE Meropenem Confirm 01/05/22 13:44 Meropenem 1 Gm Vial Administered 01/05/22 13:45 Dose 1 gm IV .STK-MED ONE Lab/Rad Data: Laboratory Result Diagrams 01/05/22 12:27 01/05/22 12:27 Laboratory Results 01/05/22 01/05/22 01/05/22 Range/Units 12:27 12:27 11:33 WBC 13.9 H (4.0-10.5) x10^3/uL RBC 4.19 (4.1-5.4) x10^6/uL Hgb 11.4 L (12.0-16.0) g/dL Hct 34.7 L (35-47) % MCV 82.8 (78-100) fL MCH 27.2 (26-32) pg MCHC 32.9 (32-36) g/dL RDW 13.8 (11.5-14.0) % Plt Count 215 (150-450) x10^3/uL MPV 10.8 (7.5-11.0) fL Gran % 83.8 H (36.0-66.0) % Immature Gran % (Auto) 0.4 (0.00-0.4) % Nucleat RBC Rel Count 0.0 (0.00-0.1) % Eos # (Auto) 0.04 (0-0.5) x10^3/uL Immature Gran # (Auto) 0.06 H (0.00-0.03) x10^3u/L Absolute Lymphs (auto) 1.22 (1.0-4.6) x10^3/uL Absolute Monos (auto) 0.89 (0.0-1.3) x10^3/uL Absolute Nucleated RBC 0.00 (0.00-0.01) x10^3u/L Lymphocytes % 8.8 L (24.0-44.0) % Monocytes % 6.4 (0.0-12.0) % Eosinophils % 0.3 (0.00-5.0) % Basophils % 0.3 (0.0-0.4) % Absolute Granulocytes 11.62 H (1.4-6.9) x10^3/uL Basophils # 0.04 (0-0.4) x10^3/uL Sodium 133 L (137-145) mmol/L Potassium 3.6 (3.5-5.1) mmol/L Chloride 103 (98-107) mmol/L Carbon Dioxide 22 (22-30) mmol/L Anion Gap 11.5 (5-15) MEQ/L BUN 10 (7-17) mg/dL Creatinine 1.07 H (0.52-1.04) mg/dL Estimated GFR > 60.0 ML/MIN Glucose 105 (74-106) mg/dL Calcium 8.6 (8.4-10.2) mg/dL Total Bilirubin 0.80 (0.2-1.3) mg/dL AST 14 (14-36) U/L ALT 14 (0-35) U/L Alkaline Phosphatase 52 (38-126) U/L Serum Total Protein 7.0 (6.3-8.2) g/dL Albumin 4.0 (3.5-5.0) g/dL Lipase 16 L (23-300) U/L Urinalys Dipstick Clnc MAIN LAB Urine Color YELLOW (YELLOW) Urine Appearance SLIGHTLY CLOUDY A (CLEAR) Urine pH 5.5 (5-6) Ur Specific [place] 1.025 (1.005-1.025) POC Urine Protein Conf 100 A (Negative) Urine Ketones TRACE A (NEGATIVE) Urine Nitrite NEGATIVE (NEGATIVE) Urine Bilirubin SMALL A (NEGATIVE) Urine Urobilinogen 0.2 (0-1) mg/dL Urine Leukocytes NEGATIVE (NEGATIVE) Urine WBC (Auto) 16-25 A (0-5) /HPF Urine RBC (Auto) 51-100 A (0-2) /HPF U Epithel Cells (Auto) MODERATE (FEW) /HPF Urine Bacteria (Auto) FEW A (NEGATIVE) /HPF Urine RBC LARGE A (0-5) [place]/ul Urine Mucus (Auto) SLIGHT A (NEGATIVE) /HPF Ur Culture Indicated? YES Urine Glucose NEGATIVE (NEGATIVE) mg/dL Urine HCG, Qual (Negative) 01/05/22 Range/Units 11:33 WBC (4.0-10.5) x10^3/uL RBC (4.1-5.4) x10^6/uL Hgb (12.0-16.0) g/dL Hct (35-47) % MCV (78-100) fL MCH (26-32) pg MCHC (32-36) g/dL RDW (11.5-14.0) % Plt Count (150-450) x10^3/uL MPV (7.5-11.0) fL Gran % (36.0-66.0) % Immature Gran % (Auto) (0.00-0.4) % Nucleat RBC Rel Count (0.00-0.1) % Eos # (Auto) (0-0.5) x10^3/uL Immature Gran # (Auto) (0.00-0.03) x10^3u/L Absolute Lymphs (auto) (1.0-4.6) x10^3/uL Absolute Monos (auto) (0.0-1.3) x10^3/uL Absolute Nucleated RBC (0.00-0.01) x10^3u/L Lymphocytes % (24.0-44.0) % Monocytes % (0.0-12.0) % Eosinophils % (0.00-5.0) % Basophils % (0.0-0.4) % Absolute Granulocytes (1.4-6.9) x10^3/uL Basophils # (0-0.4) x10^3/uL Sodium (137-145) mmol/L Potassium (3.5-5.1) mmol/L Chloride (98-107) mmol/L Carbon Dioxide (22-30) mmol/L Anion Gap (5-15) MEQ/L BUN (7-17) mg/dL Creatinine (0.52-1.04) mg/dL Estimated GFR ML/MIN Glucose (74-106) mg/dL Calcium (8.4-10.2) mg/dL Total Bilirubin (0.2-1.3) mg/dL AST (14-36) U/L ALT (0-35) U/L Alkaline Phosphatase (38-126) U/L Serum Total Protein (6.3-8.2) g/dL Albumin (3.5-5.0) g/dL Lipase (23-300) U/L Urinalys Dipstick Clnc Urine Color (YELLOW) Urine Appearance (CLEAR) Urine pH (5-6) Ur Specific [place] (1.005-1.025) POC Urine Protein Conf (Negative) Urine Ketones (NEGATIVE) Urine Nitrite (NEGATIVE) Urine Bilirubin (NEGATIVE) Urine Urobilinogen (0-1) mg/dL Urine Leukocytes (NEGATIVE) Urine WBC (Auto) (0-5) /HPF Urine RBC (Auto) (0-2) /HPF U Epithel Cells (Auto) (FEW) /HPF Urine Bacteria (Auto) (NEGATIVE) /HPF Urine RBC (0-5) [place]/ul Urine Mucus (Auto) (NEGATIVE) /HPF Ur Culture Indicated? Urine Glucose (NEGATIVE) mg/dL Urine HCG, Qual NEGATIVE (Negative) - Progress Progress: improved Progress Note: 01/05/22 14:16 36 years old is evaluated for flank pain with urinary complaints. He is offered pain medication which she refused. Currently patient is afebrile. Work-up showed white count of almost [address] abdomen pelvis without contrast showed left-sided pyelonephritis. Discussed with patient about admission versus going home and she preferred to go home. She is given a shot of meropenem in here and will start her on Bactrim to go home based on previous culture sensitivities. Culture sensitivities from this morning is pending. She is offered pain medication which she refused. She is not in any distress. Discussed signs symptoms of worsening needing return to ER which she seems understanding. Counseled pt/family regarding: lab results, diagnosis, need for follow-up, rad results - Departure Departure Disposition: Home Clinical Impression: Acute pyelonephritis Condition: Stable Critical Care Time: No Referrals: JONNY PACKER MD [Primary Care Provider] - Follow Up with PCP/3 days Instructions: Kidney Infection (DC) Additional Instructions: Take Tylenol/ibuprofen as needed for pain/fever chills. Drink plenty of fluids to keep yourself well-hydrated. Continue with antibiotics. Follow-up with primary care for reevaluation. Return to ER for worsening pain, intractable nausea vomiting/persistent high-grade fever etc. Prescriptions: Ibuprofen 600 mg PO Q6HPRN PRN 10 Days #20 tablet PRN Reason: Pain Smz/Tmp Ds Tablet [Bactrim Ds Tablet] 1 udtab PO BID 14 Days #28 tablet
--- NOTE | 2022-01-05 16:18 | XRAY ---
Indication: Bilateral lower abdomen pain. Multiple contiguous images obtained through the abdomen and pelvis without contrast using renal stone protocol. Comparison: September 05, 2021 Lungs bases demonstrates minimal dependent atelectasis. No infiltrate or effusion. Heart not enlarged. No renal calculus or evidence for obstructive uropathy in either system. Left kidney demonstrates new mild perinephric stranding favoring underlying inflammatory/infectious process. Lack of IV contrast precludes further characterization. Noncontrasted stomach and bowel loops appear nonobstructed again with normal appendix. Liver remains enlarged measuring 23.2 cm and spleen remains enlarged measuring 15.4 cm. Gallbladder again surgically absent. New 3.7 cm right ovary cyst. No free fluid/air. Remaining liver, pancreas, spleen, adrenal glands, kidneys, ureters, bladder, uterus, and aorta are unremarkable for noncontrast exam. Osseous structures remain intact. Impression: 1. Continued negative renal calculus or evidence for obstructive uropathy. New left renal perinephric stranding. Rule out pyelonephritis. 2. New 3.7 cm dominant right ovary cyst. 3. Again hepatosplenomegaly. Comment: Preliminary interpretation by [facility]. No critical discrepancy.
== END 2022-01-05 14:35 | disposition home or self-care (01) ==
LOC: ED 11:23
DX: N10 Acute pyelonephritis (principal); R10.9 Unspecified abdominal pain; R35.0 Frequency of micturition; R30.0 Dysuria; R50.9 Fever, unspecified; R11.0 Nausea; Z72.0 Tobacco use; Z79.899 Other long term (current) drug therapy
CPT/HCPCS: 36000; 36415; 74176; 80053; 81015; 81025; 83690; 85025; 87077; 87086; 87186; 96365; 99284